=== PATIENT | male | born 1970 | race Caucasian/White ===

== ENCOUNTER 2021-03-15 14:41 | Emergency (ER) | payer OTHER ==
[~2021-03-15] VITALS: Ht 182.8 cm; Wt 97.7 kg
--- NOTE | 2021-03-15 15:23 | ED Trauma-Multisystem ---
General Chief Complaint: Trauma-Non Activation Stated Complaint: FALL Nursing Triage Note: TO ED PER [facility] WAS GETTING OUT OF SHOWER AND TRIPPED ON LIP OF SHOWER AND FELL HITTING HEAD HE THINKS HE MAY OF HAD LOC. ADMIT TO DRINKING VODKA EVERYDAY. LAST DRANK LAST NIGHT DID ADMIT TO SMOKING POT LAST NIGHT. Source of Information: Patient, EMS Exam Limitations: No Limitations History of Present Illness Date Seen by Provider: Mar 15, 2021 Time Seen by Provider: 15:05 Initial Comments Patient is a 50-year-old male who presents to the emergency department with a fall this morning. Patient states that he was in the shower and caught his foot on the threshold of the shower and fell forward and hit his forehead. Patient states he believes he had a loss of consciousness that was maybe 5 minutes long. Patient states that he has felt lightheaded and had nausea and vomiting since that time. Patient has a history of hypertension and cirrhosis. He also has a ventral umbilical hernia that he is following at the [facility] for. Patient states that he is a chronic alcoholic and has been drinking at least 1 pint of alcohol daily for the last 20 years. Patient denies having any alcohol today. He denies hitting his face or hurting his extremities or neck. He does also mention that he had an episode last night or the night before of dark bloody/maroon stools when he was wiping. No discrete abdominal pain just pain around his hernia. He is not vomiting coffee-ground emesis. He is not vomiting anything that is bright red or bloody. He is not tachycardic. He has no other recent illnesses such as fevers chills cough congestion. No other GI or complaints. All other review of systems reviewed and negative except as stated. Occurred: Just Prior to Arrival Severity: Moderate Pain/Injury Location: Head Method of Injury: Fall Loss of Consciousness: Unsure Associated Symptoms (Fall): Abdominal Pain (chronic hernia pain) Allergies and Home Medications Allergies Coded Allergies: No Known Drug Allergies (Unverified , 03/15/21) Home Medications Ondansetron 8 Mg Tab.rapdis, 8 MG PO Q8H Prescribed by: RORY GUERRA on 03/15/21 6311 Patient Home Medication List Home Medication List Reviewed: Yes Review of Systems Review of Systems Constitutional: see HPI, malaise, weakness Eyes: No Symptoms Reported Ears: No Symptoms Reported Nose: No Symptoms Reported Mouth: No Symptoms Reported Throat: No Symptoms to Report Respiratory: no symptoms reported Cardiovascular: No Symptoms Reported Gastrointestinal: abdominal pain, nausea, vomiting, other (bloody stools 1-2 nights prior) Genitourinary: no symptoms reported Musculoskeletal: no symptoms reported Skin: no symptoms reported Psychiatric/Neurological: Anxiety, Depressed, Headache All Other Systems Reviewed Negative Unless Noted: Yes Past Wcorvrb-Iachfe-Jzbioj Hx Patient Social History Alcohol Use: Regular Use Alcohol Beverage of Choice: Vodka Smoking Status: Current Everyday Smoker Recent Infectious Disease Expo: No Physical Exam Vital Signs Vital Signs - First Documented 03/15/21 14:41 Temp 36.8 Pulse 95 Resp 18 B/P (MAP) 135/95 (108) Pulse Ox 94 O2 Delivery Room Air Height, Weight, BMI Height: '" Weight: lbs. oz. kg; 29.00 BMI Method: General Appearance: No Apparent Distress, WD/WN Head: Tenderness (area of erythema left forehead) Eyes: Bilateral Eye Normal Inspection, Bilateral Eye PERRL, Bilateral Eye EOMI Ears, Nose, Throat: Hearing Grossly Normal, No Evidence of ENT Injury Neck: Full Range of Motion, Normal Inspection, Non Tender Cardiovascular: Regular Rate, Rhythm, No Murmur Respiratory: Lungs Clear, Normal Breath Sounds, No Accessory Muscle Use, No Respiratory Distress Gastrointestinal: Normal Bowel Sounds, Soft, Tenderness (around umbillical hernia; hernia is soft and reducible) Rectal: Normal Exam, Normal Rectal Tone, Heme Negative Stool; No Black Stool, No Blood Streaked Stool, No Decreased Tone, No Heme Positive Stool; Hemorrhoids (Small soft nonthrombosed external hemorrhoid); No Mass, No Tenderness Extremity: Normal Capillary Refill, Normal Inspection, Normal Range of Motion, Non Tender Neurologic/Psychiatric: Alert, Oriented x3, No Motor/Sensory Deficits, Normal Mood/Affect Progress/Results/Core Measures Results/Orders Lab Results Laboratory Tests Test 03/15/21 16:20 Range/Units White Blood Count 6.4 4.3-11.0 10^3/uL Red Blood Count 4.10 L 4.30-5.52 10^6/uL Hemoglobin 14.4 13.3-17.7 g/dL Hematocrit 41 40-54 % Mean Corpuscular Volume 101 H 80-99 fL Mean Corpuscular Hemoglobin 35 H 25-34 pg Mean Corpuscular Hemoglobin Concent 35 32-36 g/dL Red Cell Distribution Width 15.8 H 10.0-14.5 % Platelet Count 94 L 130-400 10^3/uL Mean Platelet Volume 9.5 9.0-12.2 fL Immature Granulocyte % (Auto) 0 % Neutrophils (%) (Auto) 76 H 42-75 % Lymphocytes (%) (Auto) 14 12-44 % Monocytes (%) (Auto) 8 0-12 % Eosinophils (%) (Auto) 1 0-10 % Basophils (%) (Auto) 1 0-10 % Neutrophils # (Auto) 4.9 1.8-7.8 10^3/uL Lymphocytes # (Auto) 0.9 L 1.0-4.0 10^3/uL Monocytes # (Auto) 0.5 0.0-1.0 10^3/uL Eosinophils # (Auto) 0.1 0.0-0.3 10^3/uL Basophils # (Auto) 0.0 0.0-0.1 10^3/uL Immature Granulocyte # (Auto) 0.0 0.0-0.1 10^3/uL Sodium Level 141 135-145 MMOL/L Potassium Level 3.8 3.6-5.0 MMOL/L Chloride Level 106 98-107 MMOL/L Carbon Dioxide Level 21 21-32 MMOL/L Anion Gap 14 5-14 MMOL/L Blood Urea Nitrogen 7 7-18 MG/DL Creatinine 0.84 0.60-1.30 MG/DL Estimat Glomerular Filtration Rate > 60 BUN/Creatinine Ratio 8 Glucose Level 104 70-105 MG/DL Calcium Level 8.1 L 8.5-10.1 MG/DL Corrected Calcium 8.6 8.5-10.1 MG/DL Total Bilirubin 3.8 H 0.1-1.0 MG/DL Aspartate Amino Transf (AST/SGOT) 136 H 5-34 U/L Alanine Aminotransferase (ALT/SGPT) 34 0-55 U/L Alkaline Phosphatase 398 H 40-136 U/L Total Protein 6.7 6.4-8.2 GM/DL Albumin 3.4 3.2-4.5 GM/DL My Orders Orders - RORY GUERRA MD Ed Iv/Invasive Line Start (03/15/21 15:23) Ondansetron Injection (Zofran Injectio (03/15/21 15:30) Ct Head Wo (03/15/21 15:24) Ed Iv/Invasive Line Start (03/15/21 15:57) Cbc With Automated Diff (03/15/21 15:57) Comprehensive Metabolic Panel (03/15/21 15:57) Ketorolac Injection (Toradol Injection) (03/15/21 17:00) Medications Given in ED Vital Signs/I&O 03/15/21 03/15/21 14:41 17:56 Temp 36.8 Pulse 95 91 Resp 18 18 B/P (MAP) 135/95 (108) 131/88 Pulse Ox 94 96 O2 Delivery Room Air Blood Pressure Mean: 108 Progress Progress Note : Time: 16:[address] of the head noncontrast is negative for any acute intracranial abnormalities. Patient was actively vomiting in the emergency department prior to his rectal exam. This seemed to pass. Patient's headache will be treated in the emergency room with IV Toradol, pending normal renal function. Vital signs are stable. 1741 Patient feeling much better at the time of discharge nausea is completely relieved. Labs have been reviewed. The patient has mildly elevated total bilirubin and AST and alk phos. CBC is within normal limits. Platelet count is 98,000. Patient is advised to follow-up with his primary care physician he strongly encouraged not to drink alcohol. He is given contact information for [facility]. He verbalized understanding. All questions are sought and answered. Patient is stable for discharge. Diagnostic Imaging Diagonstic Imaging: CT Plain Films/CT/US/NM/MRI: head Comments [facility], [place] NAME: DARRION LEYVA [facility] REC#: [id number] PT STATUS: REG ER : 1970 PHYSICIAN: RORY GUERRA MD ADMIT DATE: 03/15/21/ER Draft Date of Exam:03/15/21 CT HEAD WO EXAMINATION: CT head without contrast. TECHNIQUE: Multiple contiguous axial images were obtained through the brain without the use of intravenous contrast. All CT scans use one or more of the following dose optimizing techniques: automated exposure control, MA and/or KvP adjustment based on patient size and exam type or iterative reconstruction. HISTORY: Fall. COMPARISON: None available. FINDINGS: The cummings-white matter differentiation is normal. No mass effect or midline shift. The ventricles are normal in size and configuration. Basilar cisterns are patent. There is no intra-axial or extra-axial fluid collection. There is no intracranial hemorrhage. 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 The orbits are normal. Paranasal sinuses are normal. Mastoid air cells are clear. No soft tissue abnormality is seen. No osseus lesion or fracture is seen. IMPRESSION: No acute intracranial abnormality. Dictated on workstation # [id number] Dict: 03/15/21 1614 Trans: 03/15/21 161 [facility] [id number] Interpreted by: TAB DAI MD Electronically signed by: Departure Impression Primary Impression: Fall Qualified Codes: W19.XXXA - Unspecified fall, initial encounter Additional Impressions: Concussion Qualified Codes: S06.0X1A - Concussion with loss of consciousness of 30 minutes or less, initial encounter Alcohol abuse Disposition: 01 HOME, SELF-CARE Condition: Stable Departure-Patient Inst. Decision time for Depature: 17:45 Referrals: [facility]LOCAL PHYSICIAN (PCP) Primary Care Physician Patient Instructions: Minor Head Injury (DC), Alcohol Abuse and Alcoholism (DC) Add. Discharge Instructions: Drink plenty of fluids to stay well-hydrated. Use the zofran, 8mg every 8 hours as needed for nausea and vomiting. Ibuprofen as needed for headache. Take this every 6 hours. Return to the Emergency Department for any worsening symptoms of Headache, vomiting or any other emergencies. Scripts Ondansetron (Ondansetron Odt) 8 Mg Tab.rapdis 8 MG PO Q8H for nausea and vomiting, #10 TAB Prov: RORY GUERRA MD 03/15/21 RORY GUERRA MD Mar 15, 2021 15:23
[2021-03-15] MEDS ORDERED: ONDANSETRON 4 MG/2 ML (SDV) Z0FRAN IVP ONE (15:30)
--- NOTE | 2021-03-15 16:17 | Diagnostic Imaging Report ---
EXAMINATION: CT head without contrast. TECHNIQUE: Multiple contiguous axial images were obtained through the brain without the use of intravenous contrast. All CT scans use one or more of the following dose optimizing techniques: automated exposure control, MA and/or KvP adjustment based on patient size and exam type or iterative reconstruction. HISTORY: Fall. COMPARISON: None available. FINDINGS: The cummings-white matter differentiation is normal. No mass effect or midline shift. The ventricles are normal in size and configuration. Basilar cisterns are patent. There is no intra-axial or extra-axial fluid collection. There is no intracranial hemorrhage. 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 The orbits are normal. Paranasal sinuses are normal. Mastoid air cells are clear. No soft tissue abnormality is seen. No osseus lesion or fracture is seen. IMPRESSION: No acute intracranial abnormality. Dictated by: Dictated on workstation # [id number]
[2021-03-15 16:27] LABS: BASOPHILS % (AUTO) 1 % (0-10); EOSINOPHILS # (AUTO) 0.1 10^3/uL (0.0-0.3); EOSINOPHILS % (AUTO) 1 % (0-10); HEMATOCRIT 41 % (40-54); HEMOGLOBIN 14.4 g/dL (13.3-17.7); LYMPHOCYTES # (AUTO) 0.9 10^3/uL (1.0-4.0); LYMPHOCYTES % (AUTO) 14 % (12-44); MEAN CORPUSCULAR HEMOGLOBIN 35 pg (25-34); MEAN CORPUSCULAR HGB CONC 35 g/dL (32-36); MEAN CORPUSCULAR VOLUME 101 fL (80-99); MEAN PLATELET VOLUME 9.5 fL (9.0-12.2); MONOCYTES # (AUTO) 0.5 10^3/uL (0.0-1.0); MONOCYTES % (AUTO) 8 % (0-12); NEUTROPHILS # (AUTO) 4.9 10^3/uL (1.8-7.8); NEUTROPHILS % (AUTO) 76 % (42-75); PLATELET COUNT 94 10^3/uL (130-400); WHITE BLOOD COUNT 6.4 10^3/uL (4.3-11.0)
[2021-03-15 16:46] LABS: ALANINE AMINOTRANSFERASE 34 U/L (0-55); ALBUMIN 3.4 GM/DL (3.2-4.5); ALKALINE PHOSPHATASE 398 U/L (40-136); BILIRUBIN,TOTAL 3.8 MG/DL (0.1-1.0); BUN/CREATININE RATIO 8; CALCIUM 8.1 MG/DL (8.5-10.1); CARBON DIOXIDE 21 MMOL/L (21-32); CHLORIDE 106 MMOL/L (98-107); CREATININE SERUM 0.84 MG/DL (0.60-1.30); GFR ESTIMATED > 60; GLUCOSE 104 MG/DL (70-105); POTASSIUM 3.8 MMOL/L (3.6-5.0); SODIUM 141 MMOL/L (135-145); TOTAL PROTEIN 6.7 GM/DL (6.4-8.2)
[2021-03-15] MEDS ORDERED: KETOROLAC 30 MG/ML VIAL IVP ONE (17:00)
[2021-03-15] MEDS ORDERED: ONDA8TAB13 PO (17:48)
[2021-03-15 17:56] VITALS: BP 131/88
== END 2021-03-15 18:03 | disposition home or self-care (01) ==
LOC: ER 14:55
DX: S06.0X1A Concussion with loss of consciousness of 30 minutes or less, initial encounter (principal); F10.10 Alcohol abuse, uncomplicated; F17.200 Nicotine dependence, unspecified, uncomplicated; W18.2XXA Fall in (into) shower or empty bathtub, initial encounter
CPT/HCPCS: 36415; 70450; 80053; 85025